=== PATIENT | female | born 1955 | race Caucasian/White ===

== ENCOUNTER 2018-05-30 00:31 | Emergency (ER) | payer MEDICAID ==
[~2018-05-30] VITALS: Ht 154.9 cm; Wt 90.7 kg
[2018-05-30 00:50] VITALS: BP_SYST 132
--- NOTE | 2018-05-30 01:00 | NUR ---
Patient brought in by ambulance from [facility] for complaint of right side body pain s/p mechanical fall. Patient states she uses a walker for ambulation and had gone to bathroom with walker and forgot the walker on way back to bed. As patient was walking to get the walker, she fell. Patient states she hit right side of body and face. Patient takes blood thinners. Patient medicated with Empire at 2100. Patient has hx of HTN, DM, DM ulcer, and skin CA.
--- NOTE | 2018-05-30 01:00 | NUR ---
Patient to ER bed 5 to gown for evaluation. Side rails up.
--- NOTE | 2018-05-30 01:01 | NUR ---
ER MD Godoy at bedside for medical evaluation.
--- NOTE | 2018-05-30 02:20 | NUR ---
Patient sleeping comfortably. No acute distress noted.
[2018-05-30 03:32] VITALS: BP_SYST 128
--- NOTE | 2018-05-30 03:32 | NUR ---
Patient given written and verbal discharge instructions and verbalizes understanding. ER MD discussed with patient the results and treatment provided. Patient in stable condition. ID arm band removed. No Rx given. Patient educated on pain management and to follow up with PMD. Pain Scale 2/10 tolerable to patient. Opportunity for questions provided and answered.
== END 2018-05-30 03:32 | disposition home or self-care (01) ==
LOC: SED 00:31
DX: S20.211A Contusion of right front wall of thorax, initial encounter (principal); S09.90XA Unspecified injury of head, initial encounter; E11.9 Type 2 diabetes mellitus without complications; I10 Essential (primary) hypertension; Z85.828 Personal history of other malignant neoplasm of skin; Z90.49 Acquired absence of other specified parts of digestive tract; W18.39XA Other fall on same level, initial encounter; Y93.89 Activity, other specified; Y92.89 Other specified places as the place of occurrence of the external cause; Y99.8 Other external cause status
CPT/HCPCS: 70450-TC; 71100; 99284